=== PATIENT | female | born 1985 | race Caucasian/White ===

== ENCOUNTER 2023-10-12 10:36 | Emergency (ER) | payer OTHER ==
[2023-10-12 10:46] VITALS: BP 128/76; PULSE 99; RESP 18; TEMP 98.2; BMI 25.7
[2023-10-12 12:26] LABS: BASO % 0.4 % (0-2.0); EOS % 0.1 % (0-4.5); HEMATOCRIT 39.6 % (32.4-45.2); HEMOGLOBIN 13.2 GM/dL (10.7-15.3); LYMPH % 8.7 % (8-40); MCH 28.8 pg (25.7-33.7); MCHC 33.4 g/dl (32.0-36.0); MEAN CELL VOLUME 86.3 fl (80-96); MEAN PLT VOLUME 7.8 fl (7.5-11.1); MONO % 2.7 % (3.8-10.2); NEUT % 88.1 % (42.8-82.8); PLATELET COUNT 337 10^3/uL (134-434); RBC 4.59 M/mm3 (3.60-5.2); RDW 14.6 % (11.6-15.6); WHITE BLOOD COUNT 7.5 K/mm3 (4.0-10.0)
[2023-10-12 12:59] LABS: POTASSIUM 3.8 mmol/L (3.5-5.1)
[2023-10-12 13:02] LABS: CALCIUM 8.9 mg/dL (8.5-10.1)
[2023-10-12 13:03] LABS: BLOOD UREA NITROGEN 11.5 mg/dL (7-18)
[2023-10-12 13:06] LABS: CREATININE 0.6 mg/dL (0.55-1.3)
[2023-10-12 13:07] LABS: BILIRUBIN,TOTAL 0.3 mg/dL (0.2-1)
[2023-10-12 13:08] LABS: TOT PROT 7.5 g/dl (6.4-8.2)
[2023-10-12] MEDS: SODIUM CHLORIDE 0.9% 500 ML INFUS.BAG IV ONE (14:45)
== END 2023-10-12 15:19 | disposition home or self-care (01) ==
LOC: JER 10:36
DX: R00.2 Palpitations (principal)
CPT/HCPCS: 36415; 80053; 84443; 85025; 85379; 93005; 93010; 99284-25